=== PATIENT | male | born 2000 | race Caucasian/White ===

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

== ENCOUNTER → 2021-04-13 | Outpatient (CLI) | payer BC, SELFPAY ==
[2021-04-15 20:08] LABS: Covid Inpatient test code BILL Performed (.)
== END | disposition home or self-care (01) ==
PROVIDERS: Referring Provider Physician Assistant Surgical; Visit Provider Physician Assistant Surgical
DX: U07.1 COVID-19 (principal)
CPT/HCPCS: 87635; U0005; U0003

== ENCOUNTER 2021-12-19 03:29 | Emergency (ER) | payer OTHER, SELFPAY ==
[2021-12-19 03:30] VITALS: BP 115/72; PULSE 106; RESP 15; TEMP 36.9; O2SAT 97; BMI 26.3
[2021-12-19] MEDS: Dicyclomine 10 MG Capsule 20 MG PO (03:52)
[2021-12-19] MEDS: Mag Hydrox/Al Hydrox/Simeth 30 ML UDC PO (03:53)
[2021-12-19] MEDS: Ondansetron ODT 4 MG Tablet PO (03:53)
--- NOTE | 2021-12-19 04:00 | RAD_ITS ---
STUDY: X-RAY - ACUTE ABDOMINAL SERIES REASON FOR EXAM: Male, 21 years old. abd pain TECHNIQUE: Single view of the chest. Supine, view(s) of the abdomen were obtained. COMPARISON: None. FINDINGS: The lungs are clear and expanded. Normal size heart. Normal mediastinum and rocael. Normal visualized pulmonary arteries. Normal visualized aortic arch and descending thoracic aorta. There is a non-specific bowel gas pattern. There is fecal material throughout the colon. Constipation is within the differential diagnosis. The soft tissue structures of the abdomen and pelvis are otherwise unremarkable. Normal visualized osseous structures. RAD/Acute Abdomen Inc Chest IMPRESSION: Normal x-ray examination of the chest. Possible constipation in the abdomen, and pelvis.. Electronically Signed: Joseluis Gray MD at 5:46 EDT ,
--- NOTE | 2021-12-19 04:08 | EDS_ITS ---
HPI HPI - GI History of Present Illness Chief Complaint: Abd Pain Informant: patient Narrative Narrative: Patient presents with epigastric pain. He states he ate a hamburger and less than an hour later he started to get nauseated. He got epigastric cramping. He felt like his stomach was going to pop. It was all in the epigastric area. It did not go to his back. He vomited the hamburger. No blood was seen. He feels a little bit better but it still sore. No history of GERD. He states other people ate the hamburgers and they were fine. He has had prior appendectomy but no other surgeries. He was not feeling ill prior to thi s. He is already feeling somewhat better. PFSH PFSH Home Medications dicyclomine 20 mg PO TID #10 tab 12/19/21 [Rx Last Taken Unknown] Allergy/AdvReac Type Severity Reaction Status Date / Time No Known Allergies Allergy Verified 12/19/21 03:33 Surgical History History of appendectomy Social History Smoking Status: Current every day smoker tobacco type: cigarettes ROS ROS ED Constitutional Constitutional ED: Denies chills or fever(s) Cardiovascular Cardiovascular: Denies chest pain or palpitations Respiratory/Chest Respiratory/Chest: Denies cough or dyspnea Gastrointestinal Gastrointestinal: Reports abdominal pain, nausea and vomiting; Denies cons tipation, diarrhea or melena Genitourinary Genitourinary ED: Denies dysuria or hematuria Musculoskeletal Musculoskeletal: Denies back pain or neck pain Integumentary Denies rash Neurologic Neurologic: Denies headache(s) Endocrine Endocrinology: Denies polydipsia or polyuria Hematologic/Lymphatic Hematologic/Lymphatic: Denies easy bleeding or easy bruising Allergic/Immunologic Allergic/Immunologic ED: Denies urticaria EXAM Physical Exam Const Vital Signs: 12/19/21 03:30 Temperature 98.5 F Temperature Source Oral Pulse Rate 106 H Respiratory Rate 15 Blood Pressure 115/72 Blood Pressure Mean 86 Pulse Ox 97 Oxygen Delivery Method Room Air Positive well nourished and well developed General Appearance ED: well developed and NAD HEENT Reports moist mucous membranes Eyes General Eye ED: Negative for pale conjunctiva or scleral icterus Neck no JVD Resp normal respiratory effort Cardio regular rate and regular rhythm GI non-distended GI Narrative: Minimal epigastric tenderness with no rebound or guarding. Abdomen is not distended. Bowel sounds sound normal. Auscultation: normoactive bowel sounds Palpation: soft Back/Spine no CVA tenderness Neuro Sensorium / Orientation: alert and oriented to person Psych mental status grossly normal Skin Lesions: no lesions Rashes: no rashes MDM MDM MDM Narrative Medical decision making narrative: Patient's symptoms resolved here with treatment. He has been watched for almost couple hours. Repeat exam is completely benign. I reviewed the 4 images of his abdominal series. Chest overall looks normal. No pneumothorax. I see no subdiaphragmatic air. There is some mild increased stool throughout the bowels. There is still material in the stomach. No sign of obstruction or ileus. No indication of perforation. Patient will be on bland diet. We discussed reasons to return that would include return of pain, fevers, recurrent vomiting, blood in the vomitus or stool or other concerns Discharge Plan Triage Chief Complaint: Abd Pain ED Provider: Efren Leija Dx/Rx/DC Orders Clinical Impression: Abdominal pain, Nausea & vomiting Instructions: ED Abdominal Pain Unkn Cause Male... Prescriptions: New dicyclomine 20 mg tablet 20 mg PO TID Qty: 10 RF: 0 Primary Care Provider: Care Physician,No Primary Referrals: Horace Dixon MD [STAFF PHYSICIAN] - 3-5 Days if not improving Care Physician,No Primary [Primary Care Provider] - Disposition Disposition: Home, Self Care
[2021-12-19 05:46] VITALS: PULSE 75; RESP 18; O2SAT 98
== END 2021-12-19 05:48 | disposition home or self-care (01) ==
PROVIDERS: Emergency Provider Emergency Medicine; Visit Provider Emergency Medicine
DX: R10.13 Epigastric pain (principal); R11.2 Nausea with vomiting, unspecified; F17.210 Nicotine dependence, cigarettes, uncomplicated
CPT/HCPCS: 74022; 99283

== ENCOUNTER 2022-01-01 20:57 | Emergency (ER) | payer OTHER, SELFPAY ==
[2022-01-01 21:00] VITALS: BP 117/59; PULSE 61; RESP 18; TEMP 37.1; O2SAT 100; BMI 22.7
--- NOTE | 2022-01-01 21:28 | EDS_ITS ---
HPI History of Present Illness Chief Complaint: Overdose Narrative Narrative: 21-year-old male presenting for suspected drug overdose. Reportedly he was altered and confused in the field. He was given Narcan prior to arrival and became agitated and aggressive. He has been calm here in the emergency room but is still confused. He does deny any pain. He does admit to using opioids, methamphetamine, bath salts, marijuana. He states that he did not use any tonight. His girlfriend who is with him states that he was walking down the [place] at his cousin's house and came in contact with some powder on his hand. She states that when he got in the car he brushed her face and said she was beautiful and then she started to get some facial swelling and redness on her face. At this point the patient became much more altered and this is when EMS was called. Patient still appears to be somewhat delirious but is alert and talking. He does not know the date, day, year. He did ask me where the hot sauce was. He does not appear to be hallucinating. He has not been aggressive. PFSH PFSH Home Medications dicyclomine 20 mg PO TID #10 tab 12/19/21 [Rx Last Taken Unknown] Allergy/AdvReac Type Severity Reaction Status Date / Time No Known Allergies Allergy Verified 01/01/22 21:06 Surgical History History of appendectomy Social History Smoking Status: Current every day smoker tobacco type: cigarettes ROS ROS ED Constitutional Constitutional ED: Denies chills or fever(s) Eyes Eyes: Denies blurry vision or diplopia ENT ENT ED: Denies rhinorrhea or sore throat Cardiovascular Cardiovascular: Denies chest pain or palpitations Respiratory/Chest Respiratory/Chest: Denies cough or dyspnea Gastrointestinal Gastrointestinal: Denies abdominal pain or nausea Genitourinary Genitourinary ED: Denies dysuria or urinary frequency Musculoskeletal Musculoskeletal: Denies arthralgias or myalgias Integumentary Denies abscess or rash Neurologic Neurologic: Denies headache(s) or weakness Psychiatric Psychiatric: Denies anxiety or depression Endocrine Endocrinology: Denies polydipsia or polyuria EXAM Physical Exam Const Vital Signs: 01/01/22 21:00 01/01/22 22:46 Temperature 98.7 F Temperature Source Temporal Pulse Rate 61 74 Respiratory Rate 18 16 Blood Pressure 117/59 L 122/84 H Blood Pressure Mean 78 96 Pulse Ox 100 98 Oxygen Delivery Method Room Air Room Air Positive well nourished General Appearance ED: NAD; Negative for pallor HEENT Reports moist mucous membranes atraumatic Eyes PERRL and EOMs intact bilaterally Chest Wall inspection of chest normal and palpation of chest normal Resp normal respiratory effort and clear to auscultation bilaterally Cardio regular rate and regular rhythm GI soft to palpation, non-tender and non-distended Neuro CN's II-XII intact bilaterally and no sensory deficits noted Sensorium / Orientation: alert and oriented to person Motor Exam: strength 5/5 throughout Psych Psych Narrative: Appears confused. Awake and talking. Skin General Skin Exam: Negative for jaundice or pallor Lesions: no lesions Rashes: no rashes MDM MDM MDM Narrative Medical decision making narrative: Seen and evaluated for possible drug overdose. He is awake and alert and talking but does appear to be confused. After speaking with him he does admit to methamphetamine use, bath salts, opioids. He states that he did not use anything today. His girlfriend states that what ever he rubbed on her face that was on his hand made her face swollen. I do not see this why I am talking to her. I continually tried to redirect her as to what his symptoms were however she became very agitated and aggressive and stated that I was not listening to her. I did express to her that I was listening but I needed to hear about the patient at which point she was calm down. I stated that he was alert and awake and he had received Narcan and this is probably why. I suspect that he is on other drugs as well but he has normal vital signs currently and has not required any repeat dosing of Narcan. I candelaria mmended to her that we monitor him until he starts to become more normal. She stated that she wanted him drug tested which I told her I would be happy to do however he admits to multiple drugs that he uses and these would probably test positive if I tested a urinalysis. It does not appear that he had blood work or imaging. After monitoring for an extended period of time his girlfriend became angry and she and he left the emergency room. He appeared to be alert and oriented when leaving. Apparently they were arguing with the nursing staff as they were walking out of the emergency room. Impression: 1. Drug overdose 2. Altered mental status resolved Discharge Plan Triage Chief Complaint: Overdose ED Provider: Garrett Dawson Dx/Rx/DC Orders Prescriptions: No Action dicyclomine 20 mg tablet 20 mg PO TID Qty: 10 RF: 0 Primary Care Provider: Care Physician,No Primary Referrals: Care Physician,No Primary [Primary Care Provider] - Disposition Disposition: [facility]op[facility] Discharge Date/Time: 01/01/22 23:01
[2022-01-01 22:46] VITALS: BP 122/84; PULSE 74; RESP 16; O2SAT 98
--- NOTE | 2022-01-01 22:56 | ED.RN ---
PT'S FRIEND BECAME AGITATED, STATES WE'RE LEAVING THIS [facility], YOU'RE NOT DOING ANYTHING FOR HIM ANYWAY. FRIEND AND PT REFUSE TO WAIT AND SPEAK TO MD, PT STATES HE IS LEAVING WITH FRIEND. PT REMOVED CARDIAC LEADS, BLOOD PRESSURE CUFF AND AMBULATES OUT OF DEPARTMENT WITH [facility]. MD AWARE.
== END 2022-01-01 23:01 | disposition left against medical advice (07) ==
PROVIDERS: Emergency Provider Student in an Organized Health Care Education/Training Program; Visit Provider Student in an Organized Health Care Education/Training Program
DX: T50.901A Poisoning by unspecified drugs, medicaments and biological substances, accidental (unintentional), initial encounter (principal); R41.0 Disorientation, unspecified; F17.210 Nicotine dependence, cigarettes, uncomplicated
CPT/HCPCS: 99285

== ENCOUNTER 2022-01-03 21:30 | Emergency (ER) | payer OTHER, SELFPAY ==
[2022-01-03 21:31] VITALS: BP 131/88; PULSE 112; RESP 15; TEMP 37.2; O2SAT 98; BMI 23.2
[2022-01-03] MEDS: 0.9% Normal Saline 1,000 ML 1000 ML IV (22:14)
--- NOTE | 2022-01-03 22:22 | EDS_ITS ---
HPI History of Present Illness Chief Complaint: Substance Abuse Narrative Narrative: Patient was seen 2 days ago for an overdose, he is thinking about going to rehab, but he still feels somewhat lightheaded when he stands up. He uses med amphetamines, THC, bath salts and occasional opiates. He tells me he is not addicted to opiates he uses opiates maybe once or twice a week. He has no nausea or vomiting, he has no headache. He has not had injury. He has no chest pain or palpitations. No diarrhea. He does have some generalized myalgias. No fever or chills. PFSH PFSH Allergy/AdvReac Type Severity Reaction Status Date / Time No Known Allergies Allergy Verified 01/03/22 21:31 Surgical History History of appendectomy Social History Smoking Status: Current every day smoker tobacco type: cigarettes ROS ROS ED ROS Narrative Past medical history: Reviewed Medications: Reviewed Social history: As in HPI Review of systems: All systems negative except as indicated General: No fever Eyes: No visual changes ENT: No upper airway congestion, normal voice Neck: No neck pain Cardiovascular: No chest pain. Some lightheadedness. Respiratory: No shortness of breath or cough Gastrointestinal: No abdominal pain, nausea vomiting or diarrhea Genitourinary: No dysuria Musculoskeletal: Generalized myalgias Skin: No rash Neurological: No memory loss, confusion or any focal weakness Psych: No recent behavioral changes Hematologic: No easy bleeding or easy bruising EXAM Physical Exam Narrative Exam Narrative: Physical exam General: Well nourished, Well developed, No Acute Distress Head: Normocephalic, Atraumatic Eyes: Conjunctiva not pale. No eye lesions or conjunctival petechiae ENT: Slightly dry mucous membranes Neck: Supple, Nontender, No lymphadenopathy Cardiovascular: Slightly tachycardic but regular. No obvious murmurs. Respiratory: No distress, CTA bilaterally Abdomen: Soft, Nontender, Nondistended Back: Nontender, Normal Inspection. Negative for: CVA tenderness Extremities: Nontender, No edema Skin: Normal color, No rash, I do not appreciate any petechiae, he has no track mccarthy. Neurological: Alert, Normal Strength, Normal Sensation Psychological: Bizarre affect, however he is lucid and coherent he is oriented x3, he is not acutely psychotic. Relatively normal speech pattern without pressured speech. Const Vital Signs: 01/03/22 21:31 Temperature 98.9 F Temperature Source Temporal Pulse Rate 112 H Respiratory Rate 15 Blood Pressure 131/88 H Blood Pressure Mean 102 Pulse Ox 98 Oxygen Delivery Method Room Air MDM MDM MDM Narrative Medical decision making narrative: Patient's work-up is unremarkable other than slight uremia, I did give him IV fluids which should correct this. Otherwise I will discharge him with reassurance. He can follow-up with the rehab program outpatient. Lab Data Labs: Laboratory Results - last 24 hr 01/03/22 01/03/22 22:14 22:14 WBC 6.1 RBC 5.23 Hgb 15.3 Hct 45.2 MCV 86.4 MCH 29.3 MCHC 33.8 RDW Std Deviation 38.4 RDW Coeff of Maggie 12.0 Plt Count 308 MPV 9.9 Immature Gran % (Auto) 0.200 Neut % (Auto) 66.9 Lymph % (Auto) 23.9 Boundary % (Auto) 7.2 Eos % (Auto) 1.0 Baso % (Auto) 0.8 Absolute Neuts (auto) 4.1 Absolute Lymphs (auto) 1.46 Nucleated RBC % 0 Sodium 140 Potassium 3.2 L Chloride 107 Carbon Dioxide 23.0 Anion Gap 10 BUN 20 H Creatinine 1.28 Estim Creat Clear Calc 90.52 Est GFR (MDRD) Af Amer 90 Est GFR (MDRD) Non-Af 74 BUN/Creatinine Ratio 15.6 Glucose 88 Calcium 9.5 Total Bilirubin 1.20 H AST 17 ALT 34 Alkaline Phosphatase 72 Total Creatine Kinase 193 Total Protein 7.8 Albumin 4.8 Globulin 3.0 Albumin/Globulin Ratio 1.6 Discharge Plan Triage Chief Complaint: Substance Abuse ED Provider: Horace Carter Dx/Rx/DC Orders Clinical Impression: Drug abuse, Acute dehydration Instructions: Dehydration Primary Care Provider: Care Physician,No Primary Referrals: Care Physician,No Primary [Primary Care Provider] - Disposition Disposition: Home, Self Care
[2022-01-03 22:30] LABS: Absolute Lymphocyte Count 1.46 X10^3/uL (0.83-4.51); Absolute Neutrophil Count 4.1 X10^3/uL (2.0-7.7); Basophil# 0.05 X10^3/uL; Basophil% 0.8 % (0-1); Eosinophil# 0.06 X10^3/uL; Hematocrit 45.2 % (40-54); Hemoglobin 15.3 g/dL (13.0-16.5); Lymphocyte # 1.46 X10^3/ul (0.83-4.51); Lymphocyte % 23.9 % (19-41); Mean Corp Hgb Conc 33.8 g/dL (32-36); Mean Corpuscular Hgb 29.3 pg (27.0-32.0); Mean Corpuscular Volume 86.4 fL (80-94); Mean Platelet Vol. 9.9 fl (6.2-12.0); Monocyte# 0.44 X10^3/uL; Monocyte% 7.2 % (0-10); NRBC Flagged by Analyzer 0 % (0-5); Neutrophil % 66.9 % (47-70); Platelet Count 308 K/mm3 (150-450); RBC Distribution Width SD 38.4 fl (35.1-43.9); Red Blood Count 5.23 M/mm3 (4.6-6.2); White Blood Count 6.1 K/mm3 (4.4-11.0)
[2022-01-03 22:42] LABS: ALB/GLOB Ratio 1.6 RATIO (0.9-2.4); AST(SGOT) 17 U/L (15-37); Alanine Aminotransfer ALT/SGPT 34 U/L (16-61); Albumin, Serum 4.8 g/dL (3.2-5.0); Alkaline Phosphatase 72 U/L (45-117); Anion Gap 10 (5-15); BUN 20 mg/dL (7-18); BUN/Creat Ratio 15.6 RATIO (10-20); CPK Total, Creatine Kinase 193 U/L (39-308); Calcium,Total 9.5 mg/dL (8.5-10.1); Chloride 107 mmol/L (98-107); Creatinine, Serum 1.28 mg/dL (0.70-1.30); EST Glomerular Filtration Rate 74 mL/min (>60); Est Glom Filt Rate - Afr Amer 90 mL/min (>60); Estimated Creatinine Clearance 90.52 ml/min; Glucose 88 mg/dL (74-106); Potassium 3.2 mmol/L (3.5-5.1); Protein, Total 7.8 g/dL (6.4-8.2); Sodium Level 140 mmol/L (136-145)
[2022-01-03 23:07] VITALS: PULSE 74; RESP 14; O2SAT 98
== END 2022-01-03 23:10 | disposition home or self-care (01) ==
PROVIDERS: Emergency Provider Emergency Medicine; Visit Provider Emergency Medicine
DX: F15.10 Other stimulant abuse, uncomplicated (principal); F12.10 Cannabis abuse, uncomplicated; F17.210 Nicotine dependence, cigarettes, uncomplicated; E86.0 Dehydration
CPT/HCPCS: 80053; 82550; 85025; 96360; 99283; J7030

== ENCOUNTER 2022-02-24 02:08 | Emergency (ER) | payer OTHER, SELFPAY ==
[2022-02-24 02:10] VITALS: BP 140/76; PULSE 106; RESP 20; TEMP 36.4; O2SAT 97; BMI 21.9
--- NOTE | 2022-02-24 02:30 | EX.ED.GUMALE ---
HPI History of Present Illness Chief Complaint: Male Pain/Injury Informant: patient Narrative Narrative: Patient presents with yellow and green penile discharge dysuria and he also feels a small amount lump at the base of his penis but he is not sure how long that has been there. The discharges around 3 or 4 days. No fevers chills sweats. No eye complaints. No joint pains or swelling. He does have exposed with unprotected sex. He feels this is likely gonorrhea as he has had that before. PFSH PFSH Home Medications doxycycline monohydrate 100 mg capsule 100 mg PO BID #14 caps 02/24/22 [Rx Last Taken Unknown] Allergy/AdvReac Type Severity Reaction Status Date / Time No Known Allergies Allergy Verified 02/24/22 02:09 Surgical History History of appendectomy Social History Smoking Status: Current every day smoker tobacco type: cigarettes ROS ROS ED Constitutional Constitutional ED: Denies chills or fever(s) Eyes Eyes: Reports other Details: No conjunctival irritation for ENT ENT ED: Denies rhinorrhea or sore throat Cardiovascular Cardiovascular: Denies chest pain Respiratory/Chest Respiratory/Chest: Denies cough or dyspnea Gastrointestinal Gastrointestinal: Denies abdominal pain, nausea or vomiting Genitourinary Genitourinary ED: Reports dysuria and other Details: See history of present illness. Musculoskeletal Musculoskeletal: Denies arthralgias Integumentary Denies rash Neurologic Neurologic: Denies headache(s) Hematologic/Lymphatic Hematologic/Lymphatic: Denies lymphadenopathy Allergic/Immunologic Allergic/Immunologic ED: Denies urticaria EXAM Physical Exam Const Vital Signs: 02/24/22 02:10 Temperature 97.6 F L Temperature Source Temporal Pulse Rate 106 H Respiratory Rate 20 H Blood Pressure 140/76 H Blood Pressure Mean 97 Pulse Ox 97 Oxygen Delivery Method Room Air Positive well nourished and well developed General Appearance ED: well developed and NAD; Negative for pallor HEENT Reports moist mucous membranes HEENT Narrative: No intraoral lesions Eyes Eyes Narrative: . General Eye ED: Negative for pale conjunctiva or scleral icterus Resp normal respiratory effort GI non-tender Palpation: soft no CVA tenderness Narrative: Patient does have a slight discharge. But he just urinated so there is very little at this time. Testicles are normal. There is no notable lymphadenopathy. Toward the base of the penis on the right side there is a area about 1 cm around that is little bit firm. But there is no erythema fluctuance. This should be followed up. I explained this to the patient. It may resolve with treatment but if not he needs to have this further evaluated. Back/Spine no CVA tenderness Extremity normal to inspection Extremity Narrative: No joint pains or swelling. Neuro Sensorium / Orientation: alert Psych mental status grossly normal Skin General Skin Exam: Negative for jaundice or pallor MDM MDM MDM Narrative Medical decision making narrative: Patient has symptoms and exposure to gonorrhea. He will be treated. I am sending off studies. He will also be treated for chlamydial infection pending results Discharge Plan Triage Chief Complaint: Male Pain/Injury ED Provider: Efren Leija Dx/Rx/DC Orders Clinical Impression: Acute gonococcal urethritis Instructions: Understanding STIs Prescriptions: New doxycycline monohydrate 100 MG capsule 100 mg PO BID Qty: 14 0RF Primary Care Provider: Care Physician,No Primary Referrals: Deng Morales MD [STAFF PHYSICIAN] - 3-5 Days if not improving Care Physician,No Primary [Primary Care Provider] - Disposition Disposition: Home, Self Care
[2022-02-24] MEDS: Doxycycline 100 MG CAPSULE PO (02:51)
[2022-02-24] MEDS: Ceftriaxone 500 MG Vial IM (02:53)
[2022-02-24 04:19] LABS: Chlamydia Trachomatis by PCR Negative (Negative); Probe Check PASS
[2022-02-24 04:23] LABS: Neisserai gonorrhoeae by PCR Positive (Negative)
--- NOTE | 2022-02-24 06:49 | ED.RN ---
patient contacted and made aware of test results and medication plan. patient advised to have partners tested
== END 2022-02-24 03:16 | disposition home or self-care (01) ==
LOC: ED 02:34
PROVIDERS: Emergency Provider Emergency Medicine; Visit Provider Emergency Medicine
DX: A54.01 Gonococcal cystitis and urethritis, unspecified (principal); F17.210 Nicotine dependence, cigarettes, uncomplicated; R30.0 Dysuria
CPT/HCPCS: 87491; 87591; 96372; 99283